=== PATIENT | female | born 2000 | race Caucasian/White ===

== ENCOUNTER 2020-04-22 06:13 | Emergency (ER) | payer MEDICAID ==
[~2020-04-22] VITALS: Ht 157.5 cm; Wt 59.0 kg
[2020-04-22 06:22] VITALS: BP 116/64; Ht 157.5 cm; Wt 59.0 kg
== END 2020-04-22 07:11 | disposition home or self-care (01) ==
LOC: ED 06:13
DX: S40.022A Contusion of left upper arm, initial encounter (principal); W22.8XXA Striking against or struck by other objects, initial encounter; Y93.89 Activity, other specified; Y92.89 Other specified places as the place of occurrence of the external cause; Y99.8 Other external cause status

== ENCOUNTER 2020-05-01 07:06 | Emergency (ER) | payer MEDICAID ==
[~2020-05-01] VITALS: Ht 157.5 cm; Wt 61.7 kg
[2020-05-01 07:20] VITALS: Ht 157.5 cm; Wt 61.7 kg
[2020-05-01 09:04] VITALS: BP 114/73
== END 2020-05-01 09:04 | disposition home or self-care (01) ==
LOC: ED 07:06
DX: M25.512 Pain in left shoulder (principal)

== ENCOUNTER 2020-05-20 06:57 | Emergency (ER) | payer MEDICAID ==
[~2020-05-20] VITALS: Ht 157.5 cm; Wt 60.8 kg
[2020-05-20 07:03] VITALS: BP 112/46; Ht 157.5 cm; Wt 60.8 kg
[2020-05-20] MEDS ORDERED: CEPHALEXIN500 MG PO (08:05)
[2020-05-20] MEDS ORDERED: PYR200 PO (08:05)
== END 2020-05-20 08:33 | disposition home or self-care (01) ==
LOC: ED 06:57
DX: N39.0 Urinary tract infection, site not specified (principal)